=== PATIENT | male | born 1985 | race Two or more races ===

== ENCOUNTER 2016-08-13 17:41 | Emergency (ER) | payer SELFPAY ==
--- NOTE | 2016-08-13 17:57 | EDM.PDOC ---
ED HPI GENERAL MEDICAL PROBLEM - General Chief Complaint: ENT Problem Stated Complaint: PAIN LT EAR Time Seen by Provider: 08/13/16 17:55 Source of Information: Reports: Patient - History of Present Illness INITIAL COMMENTS - FREE TEXT/NARRATIVE: HISTORY AND PHYSICAL: History of present illness: Left ear pain increasing over the last week no fever nausea vomiting chills sweats Review of systems: As per history of present illness and below otherwise all systems reviewed and negative. Past medical history: As per history of present illness and as reviewed below otherwise noncontributory. Surgical history: As per history of present illness and as reviewed below otherwise noncontributory. Social history: No reported history of drug or alcohol abuse. Family history: As per history of present illness and as reviewed below otherwise noncontributory. Physical exam: HEENT: Atraumatic, normocephalic, pupils reactive, negative for conjunctival pallor or scleral icterus, mucous membranes moist, throat clear, neck supple, nontender, trachea midline. Left tympanic membrane red bulging obscured with fusion no mastoid tenderness right mildly injected no mastoid tenderness no meningeal sign Lungs: Clear to auscultation, breath sounds equal bilaterally, chest nontender. Heart: S1S2, regular, negative for clicks, rubs, or JVD. Abdomen: Soft, nondistended, nontender. Negative for masses or hepatosplenomegaly. Negative for costovertebral tenderness. Pelvis: Stable nontender. Genitourinary: Deferred. Rectal: Deferred. Extremities: Atraumatic, negative for cords or calf pain. Neurovascular unremarkable. Neuro: Awake, alert, oriented. Cranial nerves II through XII unremarkable. Cerebellum unremarkable. Motor and sensory unremarkable throughout. Exam nonfocal. Diagnostics: [] Therapeutics: []Amoxicillin 875 by mouth twice a day #20 no refill Impression: []lom Definitive disposition and diagnosis as appropriate pending reevaluation and review of above. - Related Data Allergies Allergy/AdvReac Type Severity Reaction Status Date / Time No Known Allergies Allergy Verified 08/13/16 17:50 Home Meds: Home Meds . [No Known Home Meds] 08/13/16 [History] Past Medical History - Past Health History Medical/Surgical History: Denies Medical/Surgical History Musculoskeletal History: Reports: Gout Social & Family History - Tobacco Use Smoking Status *Q: Current Every Day Smoker Years of Tobacco use: 15 Packs/Tins Daily: 1 Second Hand Smoke Exposure: No - Caffeine Use Caffeine Use: Reports: Energy Drinks, Soda - Alcohol Use Days Per Week of Alcohol Use: 0 Number of Drinks Per Day: 1 Total Drinks Per Week: 0 - Recreational Drug Use Recreational Drug Use: No ED ROS ENT - Review of Systems Review Of Systems: ROS reveals no pertinent complaints other than HPI. ED EXAM, ENT - Physical Exam Exam: See Below Course - Vital Signs Last Recorded V/S: Last Vital Signs Temp 36.8 C 08/13/16 17:51 Pulse 81 08/13/16 17:51 Resp 18 08/13/16 17:51 BP 122/71 08/13/16 17:51 Pulse Ox 97 08/13/16 17:51 Departure - Departure Time of Disposition: 17:56 Disposition: Home, Self-Care 01 Condition: Good Clinical Impression: Otitis media - Discharge Information Forms: ED Department Discharge Additional Instructions: Medication as prescribed Benadryl and ibuprofen as discussed may help train effusion Return if symptoms persist or worsen Follow-up with primary care as needed The following information is given to patients seen in the emergency department who are being discharged to home. This information is to outline your options for follow-up care. We provide all patients seen in our emergency department with a follow-up referral. The need for follow-up, as well as the timing and circumstances, are variable depending upon the specifics of your emergency department visit. If you don't have a primary care physician on staff, we will provide you with a referral. We always advise you to contact your personal physician following an emergency department visit to inform them of the circumstance of the visit and for follow-up with them and/or the need for any referrals to a consulting specialist. The emergency department will also refer you to a specialist when appropriate. This referral assures that you have the opportunity for follow-up care with a specialist. All of these measure are taken in an effort to provide you with optimal care, which includes your follow-up. Under all circumstances we always encourage you to contact your private physician who remains a resource for coordinating your care. When calling for follow-up care, please make the office aware that this follow-up is from your recent emergency room visit. If for any reason you are refused follow-up, please contact the [facility] emergency department at and asked to speak to the emergency department charge nurse.
== END 2016-08-13 18:02 | disposition home or self-care (01) ==
LOC: MW.ED 17:41
CPT/HCPCS: 99282; 99283

== ENCOUNTER 2016-08-13 23:46 | Emergency (ER) | payer SELFPAY ==
[2016-08-13] MEDS ORDERED: Diphtheria,Pertussis(Acell),Tetanus Vaccine 0.5 ML Syringe IM ONE (23:57)
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
[2016-08-14 01:05] VITALS: BP 121/84
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
== END 2016-08-14 00:45 | disposition home or self-care (01) ==
LOC: MW.ED 23:46
DX: S80.01XA Contusion of right knee, initial encounter (principal); S40.011A Contusion of right shoulder, initial encounter; S80.211A Abrasion, right knee, initial encounter; S40.211A Abrasion of right shoulder, initial encounter; F17.210 Nicotine dependence, cigarettes, uncomplicated; V19.3XXA Pedal cyclist (driver) (passenger) injured in unspecified nontraffic accident, initial encounter; Y92.828 Other wilderness area as the place of occurrence of the external cause; Z23 Encounter for immunization
CPT/HCPCS: 73030; 73562; 90471; 90715; 99283; A4566

== ENCOUNTER 2017-01-06 09:06 | Emergency (ER) | payer SELFPAY ==
--- NOTE | 2017-01-06 10:22 | EDM.PDOC ---
ED HPI GENERAL MEDICAL PROBLEM - General Chief Complaint: General Stated Complaint: NAUSEA,COUGH AND RASH Time Seen by Provider: 01/06/17 10:20 Source of Information: Reports: Patient History Limitations: Reports: No Limitations - History of Present Illness INITIAL COMMENTS - FREE TEXT/NARRATIVE: HISTORY AND PHYSICAL: []31-year-old male presenting with fever chills body aches 1 day History of Present Illness: []Patient has been sick for 1 day. Feeling miserable no vomiting Review of Systems: As per history of present illness and below otherwise all systems reviewed and negative. Past medical history: As per history of present illness and as reviewed below otherwise noncontributory. Surgical history: As per history of present illness and as reviewed below otherwise noncontributory. Social history: No reported history of drug or alcohol abuse. Family history: As per history of present illness and as reviewed below otherwise noncontributory. Physical exam: Alert and oriented male answering questions appropriately in full sentences without any shortness of breath is wearing a mask but is not coughing during examination. HEENT: Atraumatic, normocehpalic, pupils reactive, negative for conjunctival pallor or scleral icterus, mucous membranes moist, throat clear, neck supple, nontender, trachea midline. Sclerae erythematous skin is hot and dry Lungs: Clear to auscultation, breath sounds equal bilaterally, chest non tender. Shallow breath sounds present Heart: S1S2, regular, negative for clicks, rubs, or JVD. Abdomen: Soft, nondistended, nontender. Negative for masses or hepatossplenmegaly. Negative for costovertebral tenderness. Pelvis: Stable nontender. Genitourinary: Deferred. Rectal: Deferred Extremities: Atraumatic, negative for cords or calf pain. Neurovascular unremarkable. Neuro: Awake, alert, oriented. Cranial nerves II through XII unremarkable. Cerebellum unremarkable. Motor and sensory unremarkable throughout. Exam nonfocal. Discussed with patient that he has a viral illness but is not influenza chest x- ray is clear there is no pneumonia or infiltrates Diagnostics: [Influenza chest x-ray] Therapeutics: [] Impression: Flulike illness] Plan: [Discharged to home [id number] Counter cold and flu products for discomfort Off work until the note has been written Follow-up with your primary care provider in the next 3-4 days not feeling improved ] Definitive disposition and diagnosis as appropriate pending reevaluation and review of above. Onset: Sudden Duration: Day(s): (1) Location: Reports: Generalized Quality: Reports: Ache Severity: Moderate Improves with: Reports: None Lower Back Pain Score (Numeric/FACES): 3 - Related Data Allergies Allergy/AdvReac Type Severity Reaction Status Date / Time No Known Allergies Allergy Verified 08/13/16 23:50 Home Meds: Home Meds Allopurinol [Zyloprim] 100 mg PO DAILY 01/06/17 [History] Indomethacin 25 mg PO PRN 01/06/17 [History] Past Medical History - Past Health History Medical/Surgical History: Denies Medical/Surgical History Genitourinary History: Reports: Renal Calculus Musculoskeletal History: Reports: Back Pain, Chronic, Gout - Infectious Disease History Infectious Disease History: Reports: Chicken Pox Other Infectious Disease History: Patient wearing mask upon presentation to Emergency room due to symptoms Social & Family History - Family History Family Medical History: Noncontributory - Tobacco Use Smoking Status *Q: Current Every Day Smoker Years of Tobacco use: 15 Packs/Tins Daily: 0.5 Second Hand Smoke Exposure: No - Caffeine Use Caffeine Use: Reports: Energy Drinks - Alcohol Use Days Per Week of Alcohol Use: 0 Number of Drinks Per Day: 1 Total Drinks Per Week: 0 - Recreational Drug Use Recreational Drug Use: No ED ROS GENERAL - Review of Systems Review Of Systems: ROS reveals no pertinent complaints other than HPI. ED EXAM, GENERAL - Physical Exam Exam: See Below (See dictation) Course - Vital Signs Last Recorded V/S: Last Vital Signs Temp 37.3 C 01/06/17 09:27 Pulse 105 H 01/06/17 09:27 Resp 18 01/06/17 09:27 BP 135/74 01/06/17 09:27 Pulse Ox 97 01/06/17 09:27 Departure - Departure Time of Disposition: 10:41 Disposition: Home, Self-Care 01 Condition: Good Clinical Impression: Acute viral syndrome - Discharge Information Referrals: Richard Camacho MD [Primary Care Provider] - Forms: ED Department Discharge Additional Instructions: The following information is given to patients seen in the emergency department who are being discharged to home. This information is to outline your options for follow-up care. We provide all patients seen in our emergency department with a follow-up referral. The need for follow-up, as well as the timing and circumstances, are variable depending upon the specifics of your emergency department visit. If you don't have a primary care physician on staff, we will provide you with a referral. We always advise you to contact your personal physician following an emergency department visit to inform them of the circumstance of the visit and for follow-up with them and/or the need for any referrals to a consulting specialist. The emergency department will also refer you to a specialist when appropriate. This referral assures that you have the opportunity for followup care with a specialist. All of these measure are taken in an effort to provide you with optimal care, which includes your followup. Under all circumstances we always encourage you to contact your private physician who remains a resource for coordinating your care. When calling for followup care, please make the office aware that this follow-up is from your recent emergency room visit. If for any reason you are refused follow-up, please contact the [facility] emergency department at and asked to speak to the emergency department charge nurse. Work release has been signed for 2 days to go home and sleep and rest [id number] Counter cold and flu medicine Up with your primary care provider in the next 3-4 days
--- NOTE | 2017-01-06 10:25 | CR ---
EXAMINATION: Two-view chest (PA and Lateral views). HISTORY: Shortness of breath. FINDINGS: The trachea is midline. The cardiomediastinal silhouette is within normal limits. No pulmonary infilt rates, effusions or pneumothorax. Osseous structures appear unremarkable. IMPRESSION: No acute cardiopulmonary process.
[2017-01-06 10:58] VITALS: BP 135/66
== END 2017-01-06 10:59 | disposition home or self-care (01) ==
LOC: MW.ED 09:06
DX: B34.9 Viral infection, unspecified (principal); F17.210 Nicotine dependence, cigarettes, uncomplicated; Z79.899 Other long term (current) drug therapy
CPT/HCPCS: 71020; 71020-26; 87804; 99283

== ENCOUNTER 2020-03-25 21:42 | Emergency (ER) | payer SELFPAY ==
[2020-03-25] MEDS ORDERED: Diazepam 2 MG Tab PO ONE (21:59)
[2020-03-25] MEDS ORDERED: Ketorolac 60 MG/2 ML SDV IM ONE (21:59)
[2020-03-25] MEDS ORDERED: Diazepam 5 MG Tab ONE (22:03)
[2020-03-25] MEDS ORDERED: Diazepam 5 MG Tab PO ONE (22:03)
--- NOTE | 2020-03-25 22:03 | EDM.PDOC ---
ED HPI GENERAL MEDICAL PROBLEM - General Chief Complaint: Back Pain or Injury Stated Complaint: BACK PAIN Time Seen by Provider: 03/25/20 21:44 - History of Present Illness INITIAL COMMENTS - FREE TEXT/NARRATIVE: 34-year-old male presenting with acute on chronic lower back pain. Patient has had back issues for several years. He presented me with an MRI report that shows a disc bulge at L4-L5. Patient has had an acute worsening of his back pain for the last 2 days. No fall no other trauma. Patient is able to sit. However the pain radiates down the outsides of the bilateral legs and worsens with walking. No urinary or bowel incontinence no saddle anesthesia or paresthesia. In the past patient has been on hydrocodone and oxycodone as well as Soma. Over the last 2 days patient has tried topical lidocaine as well as some old prescriptions of hydrocodone and oxycodone. Patient did Advil and Aleve a couple days ago but has had nothing in 2 days. Lower Back Pain Score (Numeric/FACES): 7 - Related Data Allergies Allergy/AdvReac Type Severity Reaction Status Date / Time No Known Allergies Allergy Verified 03/25/20 21:54 Home Meds: Home Meds Allopurinol [Zyloprim] 100 mg PO ASDIRECTED 01/06/17 [History] Indomethacin 25 mg PO ASDIRECTED PRN 01/06/17 [History] Acetaminophen/HYDROcodone [Nome 325-10 MG] 1 tab PO TID PRN 2 Days #6 tablet 03/25/20 [Rx] predniSONE 40 mg PO WITHBREAKFAST 5 Days #10 tab 03/25/20 [Rx] Past Medical History - Past Health History Medical/Surgical History: Denies Medical/Surgical History Genitourinary History: Reports: Renal Calculus Musculoskeletal History: Reports: Back Pain, Chronic, Gout - Infectious Disease History Infectious Disease History: Reports: Chicken Pox Other Infectious Disease History: Patient wearing mask upon presentation to Emergency room due to symptoms Social & Family History - Family History Family Medical History: No Pertinent Family History - Caffeine Use Caffeine Use: Reports: Energy Drinks ED ROS GENERAL - Review of Systems Review Of Systems: See Below Free Text/Narrative/Comment: General: No fever. Respiratory: No shortness of breath. Cardiac: No chest pain. Gastrointestinal: No nausea, vomiting or abdominal pain. Urinary: No urinary incontinence Musculoskeletal: Per HPI Neurologic: No headache. ED EXAM, GENERAL - Physical Exam Exam: See Below Free Text/Narrative:: General Appearance: No acute distress, appears comfortable Skin: No rash HEENT: Normocephalic/atraumatic, sclera anicteric, mucous membranes moist Neck: Normal range of motion Chest and Lungs: Bilateral breath sounds, clear to auscultation Cardiovascular: Regular rate and rhythm, no murmur Back: Midline tenderness L4-L5 without overlying skin changes no step-off no deformity, strength limited by pain in the bilateral hips in terms of abduction abduction flexion and extension. However strength testing shows give way and objective strength appears intact Musculoskeletal: No edema or tenderness Neurologic: Awake, alert, no obvious deficits, moving all extremities Psychiatric: Appropriate, cooperative Course - Vital Signs Last Recorded V/S: Last Vital Signs Temp 97.0 F 03/25/20 22:40 Pulse 84 03/25/20 22:40 Resp 18 03/25/20 22:40 BP 116/67 03/25/20 22:40 Pulse Ox 97 03/25/20 22:40 - Orders/Labs/Meds Meds: Medications Discontinued Medications Generic Name Dose Route Start Last Admin Trade Name Freq PRN Reason Stop Dose Admin Diazepam 5 mg 03/25/20 21:59 03/25/20 22:05 Valium PO 03/25/20 22:00 Not Given ONETIME ONE Diazepam 5 mg 03/25/20 22:03 03/25/20 22:07 Valium. PO 03/25/20 22:04 5 mg ONETIME ONE Administration Diazepam Confirm 03/25/20 22:03 03/25/20 22:07 Valium. Administered 03/25/20 22:04 Not Given Dose 5 mg .ROUTE .STK-MED ONE Ketorolac Tromethamine 60 mg 03/25/20 21:59 03/25/20 22:07 Toradol IM 03/25/20 22:00 60 mg ONETIME ONE Administration Departure - Departure Time of Disposition: 22:45 Disposition: Home, Self-Care 01 Condition: Good Clinical Impression: Acute exacerbation of chronic low back pain - Discharge Information *PRESCRIPTION DRUG MONITORING PROGRAM REVIEWED*: Not Applicable *COPY OF PRESCRIPTION DRUG MONITORING REPORT IN PATIENT GERMAINE: Not Applicable Prescriptions: Acetaminophen/HYDROcodone [Nome 325-10 MG] 1 tab PO TID PRN 2 Days #6 tablet PRN Reason: Pain predniSONE 40 mg PO WITHBREAKFAST 5 Days #10 tab Instructions: Chronic Back Pain, [id number] Referrals: Richard Camacho MD [Primary Care Provider] - 3 Days Forms: ED Department Discharge Sepsis Event Note (ED) - Evaluation Sepsis Screening Result: No Definite Risk - Focused Exam Vital Signs: Vital Signs Temp Pulse Resp BP Pulse Ox 03/25/20 22:40 97.0 F 84 18 116/67 97 03/25/20 21:48 97.0 F 81 18 144/91 H 98 - Assessment/Plan Assessment:: 34-year-old male presenting with acute on chronic lower back pain no history of trauma no indication for imaging. No signs of cord compression or cauda equina. patient is not driving home. Toradol and Valium given for symptoms and will reassess. Review of the prescription monitoring database reveals no active concerning prescriptions. After discussion with the patient and recommended prednisone for 5 days I have also sent a prescription for 6 Nome 10 tablets to the pharmacy to help him for the first 48 hours while the prednisone kicks in. We discussed not combining the prednisone with any other anti-inflammatories. 2244: Symptoms improved patient ambulates well with steady gait patient discharged.
[2020-03-25 22:44] VITALS: BP 116/67; PULSE 84
== END 2020-03-25 22:40 | disposition home or self-care (01) ==
LOC: MW.ED 21:42
DX: M54.5 Low back pain (principal); G89.29 Other chronic pain
CPT/HCPCS: 96372; 99283; A9270; J1885

== ENCOUNTER 2021-08-11 21:02 | Emergency (ER) | payer SELFPAY ==
[2021-08-11] MEDS ORDERED: Ketorolac 30 MG/ML SDV IM ONE (23:05)
[2021-08-11 23:33] LABS: CARBON DIOXIDE,CO2 27.4 mmol/L (21.0-32.0); POTASSIUM,K 3.9 mmol/L (3.5-5.1)
[2021-08-11] MEDS ORDERED: Sulfamethoxazole/Trimethoprim 800-160 MG Tab PO STA (23:47)
[2021-08-12 00:27] VITALS: BP 130/74; PULSE 76
== END 2021-08-12 00:27 | disposition home or self-care (01) ==
LOC: MW.ED 21:02
DX: L03.115 Cellulitis of right lower limb (principal)
CPT/HCPCS: 36415; 73610; 73630; 80053; 84550; 85025; 85652; 86140; 96372; 99283; A9270; J1885

== ENCOUNTER 2022-05-19 11:52 | Emergency (ER) | payer SELFPAY ==
[2022-05-19] MEDS ORDERED: Tetracaine HCl/PF 0.5% 4 ML Bottle EYELF STA (13:58)
[2022-05-19] MEDS ORDERED: Diphtheria,Pertussis(Acell),Tetanus Vaccine 0.5 ML Syringe IM ONE (13:59)
[2022-05-19] MEDS ORDERED: Ofloxacin 0.3% Ophth Soln 5 ML Bottle EYELF STA (15:09)
[2022-05-19 15:52] VITALS: BP 135/79; PULSE 76
== END 2022-05-19 15:50 | disposition home or self-care (01) ==
LOC: MW.ED 11:52
DX: T15.92XA Foreign body on external eye, part unspecified, left eye, initial encounter (principal); Z72.0 Tobacco use; Z23 Encounter for immunization
CPT/HCPCS: 90471; 90715; 99283; A9270; 99282; J3490

== ENCOUNTER 2022-08-13 16:45 | Emergency (ER) | payer SELFPAY ==
[2022-08-13] MEDS ORDERED: Acetaminophen/HYDROcodone 325-5 MG Tab PO ONE (16:55)
[2022-08-14 00:38] VITALS: BP 155/84; PULSE 97
== END 2022-08-13 17:45 | disposition home or self-care (01) ==
LOC: MW.ED 16:45
DX: S83.422A Sprain of lateral collateral ligament of left knee, initial encounter (principal)
CPT/HCPCS: 73562; 99283; A9270